=== PATIENT | male | born 1965 | race Caucasian/White ===

== ENCOUNTER 2018-03-04 08:45 | Outpatient (CLI) | payer MEDICARE, MEDICAID ==
[~2018-03-04 08:45] MED LIST: ALLO300T2 PO; FURO-144 PO; GEMF600T3 PO; HYDR1CAP2 PO; IBUP-1957 PO; METO50TA16 PO; SIMV20TA6 PO
== END 2018-03-04 23:59 | disposition home or self-care (01) ==
LOC: MSC 08:45
PROVIDERS: ATTEND Anesthesiology
DX: M51.16 Intervertebral disc disorders with radiculopathy, lumbar region (principal); M46.96 Unspecified inflammatory spondylopathy, lumbar region; M48.061 Spinal stenosis, lumbar region without neurogenic claudication; M47.27 Other spondylosis with radiculopathy, lumbosacral region; M79.2 Neuralgia and neuritis, unspecified; M79.606 Pain in leg, unspecified; I10 Essential (primary) hypertension; Z79.1 Long term (current) use of non-steroidal anti-inflammatories (NSAID)

== ENCOUNTER 2018-06-03 10:51 | Outpatient (CLI) | payer MEDICARE, MEDICAID | END 2018-06-03 23:59 | disposition home or self-care (01) | LOC: RAD 10:51 | PROVIDERS: ATTEND Anesthesiology | DX: M17.11 Unilateral primary osteoarthritis, right knee (principal) | CPT/HCPCS: 73560-TC ==

== ENCOUNTER → 2018-06-03 | Outpatient (CLI) | payer MEDICARE, MEDICAID ==
[~2018-06-03] MED LIST changes: -GEMF600T3 PO; +GEMF600T4 PO
== END | disposition home or self-care (01) ==
LOC: MSC 10:00
PROVIDERS: ATTEND Anesthesiology
DX: M47.27 Other spondylosis with radiculopathy, lumbosacral region (principal); M46.96 Unspecified inflammatory spondylopathy, lumbar region; M48.061 Spinal stenosis, lumbar region without neurogenic claudication; M17.11 Unilateral primary osteoarthritis, right knee; M25.561 Pain in right knee; M79.2 Neuralgia and neuritis, unspecified; M79.669 Pain in unspecified lower leg; Z79.1 Long term (current) use of non-steroidal anti-inflammatories (NSAID); I10 Essential (primary) hypertension; M10.9 Gout, unspecified

== ENCOUNTER 2018-06-12 10:10 | Outpatient (CLI) | payer MEDICARE, MEDICAID ==
[2018-06-12 11:22] LABS: APPEARANCE,URINE CLEAR (CLEAR); BILIRUBIN,URINE NEGATIVE (NEGATIVE); BLOOD, URINE TRACE Ery/uL (NEGATIVE); COLOR,URINE YELLOW (YELLOW); KETONES,URINE NEGATIVE (NEGATIVE); LEUKOCYTE ESTERASE ,URINE NEGATIVE (NEGATIVE); NITRITE, URINE NEGATIVE (NEGATIVE); PROTEIN,URINE 2+ mg/dl (NEGATIVE); UGLUCOSE NEGATIVE (NEGATIVE); UROBILINOGEN,URINE 0.2 EU/dL (0.2)
[2018-06-12 11:24] LABS: BACTERIA,URINE Rare /HPF (None Seen); RBC,URINE NONE SEEN /HPF (0-2); SQUAMOUS EPITHELIAL CELL,UR Rare /HPF (None Seen); WBC,URINE 0-2 /HPF (0-3)
[2018-06-12 11:36] LABS: ALBUMIN 3.9 g/dL (3.4-5.0); BILIRUBIN,TOTAL 0.6 mg/dL (0.2-1.0); CALCIUM, SERUM 9.4 mg/dL (8.5-10.1); POTASSIUM 4.4 mmol/L (3.5-5.1)
== END 2018-06-12 23:59 | disposition home or self-care (01) ==
LOC: US 10:10
DX: K76.0 Fatty (change of) liver, not elsewhere classified (principal); R16.0 Hepatomegaly, not elsewhere classified
CPT/HCPCS: 36415; 76700-TC; 80053-TC; 81000-TC

== ENCOUNTER → 2018-09-02 | Outpatient (CLI) | payer MEDICARE, MEDICAID ==
[~2018-09-02] MED LIST changes: -GEMF600T4 PO; +GEMF600T5 PO
== END | disposition home or self-care (01) ==
LOC: MSC 16:00
PROVIDERS: ATTEND Anesthesiology
DX: M51.36 Other intervertebral disc degeneration, lumbar region (principal); M46.96 Unspecified inflammatory spondylopathy, lumbar region; M48.061 Spinal stenosis, lumbar region without neurogenic claudication; M47.27 Other spondylosis with radiculopathy, lumbosacral region; M79.2 Neuralgia and neuritis, unspecified; M79.669 Pain in unspecified lower leg; M17.11 Unilateral primary osteoarthritis, right knee; M25.561 Pain in right knee

== ENCOUNTER → 2018-12-30 | Outpatient (CLI) | payer MEDICARE, MEDICAID | END | disposition home or self-care (01) | LOC: MSC 13:00 | PROVIDERS: ATTEND Anesthesiology | DX: G89.29 Other chronic pain (principal); M54.2 Cervicalgia; M46.96 Unspecified inflammatory spondylopathy, lumbar region; M51.36 Other intervertebral disc degeneration, lumbar region; M48.061 Spinal stenosis, lumbar region without neurogenic claudication; M47.27 Other spondylosis with radiculopathy, lumbosacral region; M79.2 Neuralgia and neuritis, unspecified; M17.11 Unilateral primary osteoarthritis, right knee; M79.669 Pain in unspecified lower leg ==

== ENCOUNTER → 2019-06-30 | Outpatient (CLI) | payer MEDICARE, MEDICAID ==
[2019-06-30 14:15] VITALS: BP 139/91
== END | disposition home or self-care (01) ==
LOC: MSC 14:15
PROVIDERS: ATTEND Anesthesiology
DX: M46.96 Unspecified inflammatory spondylopathy, lumbar region (principal); M51.36 Other intervertebral disc degeneration, lumbar region; M47.27 Other spondylosis with radiculopathy, lumbosacral region; M48.061 Spinal stenosis, lumbar region without neurogenic claudication; M50.10 Cervical disc disorder with radiculopathy, unspecified cervical region; M79.2 Neuralgia and neuritis, unspecified; M17.11 Unilateral primary osteoarthritis, right knee; G89.29 Other chronic pain; M79.606 Pain in leg, unspecified

== ENCOUNTER 2019-07-13 05:50 | Day surgery (SDC) | payer MEDICARE, MEDICAID ==
[~2019-07-13 05:50] MED LIST changes: +SIMV-46 PO; -SIMV20TA6 PO
[2019-07-13] MEDS ORDERED: FENTANYL PF 100MCG/2ML AMPUL ONE (07:11)
[2019-07-13] MEDS ORDERED: IOHEXOL 240MG/ML 50 ML IV ONE (07:27)
[2019-07-13] MEDS ORDERED: methylPREDNISolone ACETATE 80 MG/ML VIAL ONE (07:28)
[2019-07-13] MEDS ORDERED: ANESTHESIA TRAY IN PYXIS 1 EA TRAY MC ONE (07:28)
[2019-07-13] MEDS ORDERED: LIDOCAINE HCL/PF 1% 30 ML SDV ONE (07:28)
[2019-07-13] MEDS ORDERED: BUPIVACAINE 0.25% 75 MG/30 ML VIAL ONE (07:28)
== END 2019-07-13 08:50 | disposition home or self-care (01) ==
LOC: DS 05:50
PROVIDERS: ATTEND Anesthesiology
DX: M54.5 Low back pain (principal); G89.29 Other chronic pain; M47.26 Other spondylosis with radiculopathy, lumbar region
CPT/HCPCS: 62323; 72020; A6209; J1040; J2704; J3010; J3490; Q9966

== ENCOUNTER → 2019-07-14 | Outpatient (CLI) | payer MEDICARE, MEDICAID | END | disposition home or self-care (01) | LOC: MSC 14:10 | PROVIDERS: ATTEND Anesthesiology | DX: M46.96 Unspecified inflammatory spondylopathy, lumbar region (principal); M51.36 Other intervertebral disc degeneration, lumbar region; M48.061 Spinal stenosis, lumbar region without neurogenic claudication; M47.27 Other spondylosis with radiculopathy, lumbosacral region; M50.10 Cervical disc disorder with radiculopathy, unspecified cervical region; G89.29 Other chronic pain; M17.11 Unilateral primary osteoarthritis, right knee; M79.2 Neuralgia and neuritis, unspecified ==